=== PATIENT | male | born 1965 | race Caucasian/White ===

== ENCOUNTER 2017-08-31 18:02 | Inpatient (IN) | payer OTHER ==
[~2017-08-31] VITALS: Ht 182.9 cm; Wt 76.1 kg
--- NOTE | ~2017-08-31 | EKG ---
[address] [address] ELECTROCARDIOGRAM REPORT Name: JUSTIN MORGAN Room #: 439- ADM IN .R.#: [id number] Admission: 08/31/17 Attend Phys: Gerard Pérez MD Discharge: Date of : 67 Report #: [id number] THIS REPORT FOR: //name// Formerly [facility] Test Date: 2017-09-01 Test Time: 17:46:26 Pat Name: JUSTIN MORGAN Department: Room: 439 Gender: M Contract Administration Manager: Jose Rafael LEONG : 1965 Requested By: Bethany Rodas Order Number: [id number] MD: Panda Sanford Measurements Intervals [place] Rate: 71 P: 47 AL: 166 QRS: 34 QRSD: 111 T: 49 QT: 418 QTc: 455 Interpretive Statements Sinus rhythm Probable left ventricular hypertrophy Compared to ECG 03/05/2008 20:40:15 Sinus tachycardia no longer present Electronically Signed On 09-02-2017 8:13:44 J[employer]IOR SALES ASSISTANT by Panda Sanford [email or web address] <ELECTRONICALLY SIGNED> By: Panda Sanford MD, [facility] 09/02/17 0813 45 45 Panda Sanford MD, [facility] /EPI
--- NOTE | ~2017-08-31 | P ---
[facility] [place] [address] PROCEDURE REPORT Name: JUSTIN MORGAN Donald Room #: 439-P [facility] IN ..#: [id number] Admission: 08/31/17 Attend Phys: Gerard Pérez MD Discharge: 09/05/17 Date of : 67 Report #: [id number] THIS REPORT FOR: //name// CC: ERIC physician/PCP Gerard Pérez MD DATE OF SERVICE: 09/01/2017 PROCEDURE PERFORMED: ERCP with sphincterotomy and balloon sweeps. HISTORY OF PRESENT ILLNESS: The patient is a 52-year-old male with abdominal pain, nausea and vomiting. He was evaluated at [facility], apparently had an elevated lipase. MRCP was performed, which showed biliary ductal dilation of 11 mm, pancreatic duct was 5 mm. There was truncation of the duct at the level of the ampulla and a possible meniscus sign. No definite filling defects were noted. Ampullary mass was not seen. Pancreas was homogeneous and liver looked normal aside from the dilated ducts. The patient has had a previous cholecystectomy. His liver function tests here are normal. Plan is for ERCP. DESCRIPTION OF PROCEDURE: The risks and benefits of the procedure were explained to the patient, those risks including but not limited to bleeding, perforation, the risk of sedation as well as the potential risk for posterior pancreatitis. He understood these risks and gave informed consent. The procedure was performed in the OR under general anesthesia. The patient received Ancef 1 gram prior to the procedure as well as an indomethacin 50 mg rectal suppository. Next, using a standard Fujinon side-viewing ERCP scope, the scope was placed in the patient's mouth and advanced under direct vision through the esophagus, stomach and into the second portion of the duodenum, at which point, the major papilla was identified and was normal in appearance. Bile was noted exiting the bile duct. Next, using a GeoGraffiti 0.025 sphincterotome catheter, D.A.S.H. sphincterotome catheter, the common bile duct was cannulated without difficulty and a cholangiogram was obtained. The duct was dilated. The intrahepatic ducts were fairly normal, although mildly dilated. No obvious filling defects were noted. The previous cholecystectomy clips were noted. There was no evidence of bile leak. At this point, I performed a sphincterotomy without difficulty. Next, a sphincterotome was removed over a guidewire and several balloon sweeps were performed. No sludge or debris was removed. A balloon occlusion cholangiogram was then obtained, which showed again no filling defects. At this point, the scope was then withdrawn and the procedure terminated. The patient tolerated the procedure well. IMPRESSION: 1. Dilated common bile duct without evidence of filling defect. Balloon sweeps were performed, which were normal. No evidence of stones or debris were noted. 2. Sphincterotomy was performed for the possibility of papillary stenosis. [address] [address] PROCEDURE REPORT Name: JUSTIN MORGAN Room #: 439-P DIS IN M.R.#: [id number] Admission: 08/31/17 Attend Phys: Gerard Pérez MD Discharge: 09/05/17 Date of : 67 Report #: [id number] RECOMMENDATIONS: 1. Observe the patient post-procedure. 2. If the patient has continued symptoms, consider an endoscopic ultrasound of the abdomen for further evaluation of the pancreas and the pancreatic duct as well. Thank you for allowing me to participate in his care. <ELECTRONICALLY SIGNED> By: Jose Kumar MD 09/07/17 0914 1010 1928 Jose Kumar MD /nt
--- NOTE | ~2017-08-31 | S ---
[facility] [place] [address] [place] [address] SURGICAL PATH RPT PROCEDURE Name: JUSTIN PERDUE Room #: 439-P ADM IN M.R.#: [id number] Admission: 08/31/17 Date of : 67 Discharge: Report #: [id number] Path Case #: [id number] PATHOLOGY REPORT COLLECTION DATE: 09/01/2017 RECEIVED DATE: 09/01/2017 SUBMITTING PHYS: Dr. Jose Kumar OTHER PHYS: Dr. Gerard Pérez SPECIMEN(S) RECEIVED: A.Ampulla * * * * * * * * * * * * FINAL DIAGNOSIS: Small bowel mucosa, ampulla rule out adenomatous changes, endoscopic biopsy: - Fibrotic lamina propria with entrapped markedly reactive epithelium (please see comment). - Second fragment with unremarkable small bowel mucosa. COMMENT: Examination shows focal flattening of the small bowel mucosa with underlying fibrotic lamina propria as well as entrapped crypts showing reactive changes. Active inflammation is not present. History of pancreatitis along with dilated common bile duct is provided. It is also gathered that per the MRCP in addition to the dilated biliary tree and a dilated pancreatic duct, there was truncation of the duct at the level of ampulla without any definite filling defects seen. There was no evidence of a mass identified at the ampulla. Overall findings appear nonspecific and reactive due to the pancreatitis. There is no dysplasia or malignancy present. Co-review: Dr. Ana Laura Lopez. (IUV:pit; 09/02/2017) PATHOLOGIST: Jennifer Jarquin M.D. REPORT ELECTRONICALLY SIGNED BY: Jennifer Jarquin M.D. DATE/TIME: 09/02/2017 14:52 * * * * * * * * * * * * GROSS PATHOLOGY: Received in formalin labeled "Justin Perdue, BX of ampulla, rule out adenomatous changes," are 2 segments of arce soft tissue measuring 0.6 x 0.2 x 0.2 cm in aggregate dimensions and ranging from 0.2 to 0.4 cm in maximum dimension. The specimen is submitted entirely in cassette A1. (TSD; 09/01/2017) [address] [address] SURGICAL PATH RPT PROCEDURE Name: JUSTIN PERDUE Room #: 439-P ADM IN M.R.#: [id number] Admission: 08/31/17 Date of : 67 Discharge: Report #: [id number] Path Case #: [id number] CLINICAL HISTORY: Pre-OP DX: Pancreatitis, dilated common bile duct, abdominal pain Post-OP DX: sphinctectomy INITIAL CPT CODE(S): A; 88111 Professional services performed by [facility] at [address] , [place] [address] Technical services performed by [facility] at [address] [place] [address], [address] [address]. [facility] [address] [address] PHONE: [phone] DIRECTOR: Cornell Frazier M.D. * * * END OF REPORT * * *
--- NOTE | ~2017-08-31 | S ---
[facility] [place] [address] SURGICAL PATH RPT PROCEDURE Name: JUSTIN PERDUE Room #: 439-P DIS IN M.R.#: [id number] Admission: 08/31/17 Date of : 67 Discharge: 09/05/17 Report #: [id number] Path Case #: [id number] PATHOLOGY REPORT COLLECTION DATE: 09/05/2017 RECEIVED DATE: 09/05/2017 SUBMITTING PHYS: Dr. Waqar Andrade OTHER PHYS: Dr. Gerard Pérez SPECIMEN(S) RECEIVED: A.Bx of small bowel B.Gastric bx C.Bx of distal esophagus * * * * * * * * * * * * FINAL DIAGNOSIS: A. Bx of small bowel: - Duodenal mucosa with intact villous architecture and no increase in intraepithelial lymphocytes. B. Gastric bx: - Mild chronic inactive gastritis with prominent reactive change. - An H. pylori immunostain is negative (Block B1; appropriately reactive control). C. Bx of distal esophagus: - Squamocolumnar junctional mucosa with severe acute inflammation and chronic inflammation. - Negative for intestinal metaplasia. - A GMS fungal stain is negative (Block C1; appropriately reactive control). - Viral type inclusions are not identified in the heavily inflamed squamous mucosa. PATHOLOGIST: Brien Rausch M.D. REPORT ELECTRONICALLY SIGNED BY: Brien Rausch M.D. DATE/TIME: 09/07/2017 09:08 * * * * * * * * * * * * GROSS PATHOLOGY: A. Received in formalin labeled "Justin Perdue BX of small bowel, rule out celiac," are 2 segments of arce soft tissue measuring 1.0 x 0.2 x 0.2 cm in aggregate dimensions and ranging from 0.4 to 0.6 cm in maximum dimension. The specimen is submitted entirely in cassette A1. B. Received in formalin labeled "Justin Perdue, gastric BX, rule out H. pylori," is a segment of arce soft tissue measuring 0.4 cm in maximum dimension. The specimen is submitted entirely in cassette B1. [address] [address] SURGICAL PATH RPT PROCEDURE Name: JUSTIN PERDUE Room #: 439-P [facility] IN M.R.#: [id number] Admission: 08/31/17 Date of : 67 Discharge: 09/05/17 Report #: [id number] Path Case #: [id number] C. Received in formalin labeled "Justin Perdue BX of distal esophagus, rule out Guerrero's," are 2 segments of arce soft tissue measuring 0.4 x 0.2 x 0.2 cm in aggregate dimensions and measuring 0.2 cm each in maximum dimension. The specimen is submitted entirely in cassette C1. (TSD; 09/05/2017) CLINICAL HISTORY: Pre-OP DX: Abdominal pain Post-OP DX: Esophagitis, hiatal hernia INITIAL CPT CODE(S): A; 15622 B; 52753, 41724 C; 97607, 7[address] Professional services performed by [facility] at [facility] [address], [place] [address] Technical services performed by [facility] at [address] [place] [address], [address], [place] [address]. [facility] [address] [place] [address] PHONE: [phone] DIRECTOR: Cornell Frazier M.D. * * * END OF REPORT * * *
[2017-08-31 19:45] VITALS: BP 137/82
[2017-09-01] VITALS (12 sets, daily range): BP systolic 132–173; BP diastolic 69–96
[2017-09-01 05:28] LABS: HEMATOCRIT 42.5 % (42.0-52.0); HEMOGLOBIN 14.5 gm/dL (14.0-18.0); MCH 33.2 pg (26.0-34.0); MCHC 34.1 g/dL (28.0-37.0); MCV 97.6 fL (80.0-100.0); RBC 4.36 mil/uL (4.50-6.00); RDW 12.8 % (10.5-14.5)
[2017-09-01 05:48] LABS: ALBUMIN 2.8 g/dL (3.4-5.0); ANION GAP 6 mmol/L (7-16); BUN 9 mg/dL (7-18); CALCIUM 8.9 mg/dL (8.5-10.1); CHLORIDE 107 mmol/L (98-107); CHOLESTEROL 170 mg/dL (<200); CO2 28 mmol/L (21-32); CREATININE 0.8 mg/dL (0.7-1.3); GLUCOSE 90 mg/dL (74-106); HDL CHOLESTEROL 26 mg/dL (>40); LDL CHOLESTEROL 109 mg/dL (<100); LIPASE 234 U/L (73-393); POTASSIUM 4.2 mmol/L (3.5-5.1); SGOT 28 U/L (15-37); SGPT 57 U/L (30-65); SODIUM 141 mmol/L (136-145); TC:HDL 6.5 Ratio (Not establshd); TOTAL BILIRUBIN 0.4 mg/dL (<0.1-1.0); TOTAL PROTEIN 6.7 g/dL (6.4-8.2); TRIGLYCERIDE 176 mg/dL (<150); VLDL 35 mg/dL (<40)
[2017-09-01 05:50] LABS: SERUM ASSESSMENT Clear
[2017-09-02 03:48] VITALS: BP 137/65
[2017-09-02 05:22] LABS: ABSOLUTE NEUTROPHILS 7.2 thou/uL (1.4-8.2); BASOPHILS 0.2 % (0.0-2.0); EOSINOPHILS 0.2 % (0.0-3.0); HEMATOCRIT 40.4 % (42.0-52.0); HEMOGLOBIN 14.1 gm/dL (14.0-18.0); LYMPHOCYTES 12.4 % (24.0-44.0); MCH 33.2 pg (26.0-34.0); MCHC 34.9 g/dL (28.0-37.0); MCV 95.1 fL (80.0-100.0); MONOCYTES 5.6 % (1.0-8.0); PLATELET COUNT 374 thou/uL (150-400); POLYS 81.6 % (36.0-66.0); RBC 4.24 mil/uL (4.50-6.00); RDW 12.5 % (10.5-14.5); WBC 8.8 thou/uL (4.0-11.0)
[2017-09-02 05:37] LABS: CREATININE 0.9 mg/dL (0.7-1.3); POTASSIUM 4.2 mmol/L (3.5-5.1); TOTAL BILIRUBIN 0.4 mg/dL (<0.1-1.0); TOTAL PROTEIN 7.3 g/dL (6.4-8.2)
[2017-09-02 08:00] VITALS: BP 151/97
[2017-09-02 16:00] VITALS: BP 145/75
[2017-09-02 19:57] VITALS: BP 140/79
[2017-09-03 03:33] VITALS: BP 140/85
[2017-09-03 05:59] VITALS: BP 139/94
[2017-09-03 06:45] LABS: HEMATOCRIT 37.1 % (42.0-52.0); HEMOGLOBIN 12.7 gm/dL (14.0-18.0); MCH 32.5 pg (26.0-34.0); MCHC 34.2 g/dL (28.0-37.0); RBC 3.9 mil/uL (4.50-6.00); RDW 12.7 % (10.5-14.5)
[2017-09-03 06:55] LABS: CALCIUM 8.2 mg/dL (8.5-10.1); CREATININE 0.7 mg/dL (0.7-1.3); POTASSIUM 3.5 mmol/L (3.5-5.1)
[2017-09-03] MEDS ORDERED: PERCOCET PO (08:49)
[2017-09-03] MEDS ORDERED: PROTONIX40 M1 PO (08:50)
[2017-09-03 08:52] VITALS: BP 186/87
[2017-09-03 09:34] VITALS: BP 143/84
[2017-09-03 16:49] VITALS: BP 174/101
[2017-09-03 19:33] VITALS: BP 192/119
[2017-09-04 04:24] VITALS: BP 152/97
[2017-09-04 05:16] LABS: HEMOGLOBIN 14.2 gm/dL (14.0-18.0); MCH 32.8 pg (26.0-34.0); MCHC 34.6 g/dL (28.0-37.0); MCV 94.8 fL (80.0-100.0); RBC 4.32 mil/uL (4.50-6.00); RDW 12.6 % (10.5-14.5); WBC 5.8 thou/uL (4.0-11.0)
[2017-09-04 05:26] LABS: CALCIUM 9.2 mg/dL (8.5-10.1); CREATININE 0.8 mg/dL (0.7-1.3); POTASSIUM 3.6 mmol/L (3.5-5.1)
[2017-09-04 08:00] VITALS: BP 117/84
[2017-09-04 19:52] VITALS: BP 151/96
[2017-09-05 00:25] VITALS: BP 134/74
[2017-09-05 03:59] VITALS: BP 126/76
[2017-09-05 09:45] VITALS: BP 134/96
[2017-09-05 16:10] VITALS: BP 162/103
[2017-09-05] MEDS ORDERED: ZOFRAN ODT4 MG PO (16:27)
[2017-09-05] MEDS ORDERED: PROTONIX40 M1 PO (16:30)
[2017-09-05] MEDS ORDERED: MIRALAX17 GM PO (16:31)
[2017-09-05] MEDS ORDERED: COLACE100 MG PO (16:31)
[2017-09-05 16:50] VITALS: BP 162/103
[2017-09-05] MEDS ORDERED: REGLAN 10 MG TA10 MG PO (17:16)
== END 2017-09-05 17:40 | disposition home or self-care (01) | DRG 444 ==
LOC: 4S 18:02
PROVIDERS: Hospitalist; Internal Medicine Gastroenterology; Nurse Practitioner Family
PROC: 05HB33Z Insertion of Infusion Device into Right Basilic Vein, Percutaneous Approach (ICD-10-PCS; principal; 2017-09-01)
PROC: 0F9C8ZZ Drainage of Ampulla of Vater, Via Natural or Artificial Opening Endoscopic (ICD-10-PCS; principal; 2017-09-01)
PROC: 0DB88ZX Excision of Small Intestine, Via Natural or Artificial Opening Endoscopic, Diagnostic (ICD-10-PCS; 2017-09-05)
PROC: 0DB68ZX Excision of Stomach, Via Natural or Artificial Opening Endoscopic, Diagnostic (ICD-10-PCS; 2017-09-05)
PROC: 0DB38ZX Excision of Lower Esophagus, Via Natural or Artificial Opening Endoscopic, Diagnostic (ICD-10-PCS; 2017-09-05)
DX: K80.50 Calculus of bile duct without cholangitis or cholecystitis without obstruction (principal); K85.90 Acute pancreatitis without necrosis or infection, unspecified; J43.9 Emphysema, unspecified; F17.210 Nicotine dependence, cigarettes, uncomplicated; Z88.8 Allergy status to other drugs, medicaments and biological substances; Z86.19 Personal history of other infectious and parasitic diseases
CPT/HCPCS: 10102; 27001; 62110; 62900; 70005